=== PATIENT | female | born 1965 | race Caucasian/White ===

== ENCOUNTER 2017-04-18 18:24 | Emergency (ER) | payer OTHER ==
[2017-04-18 18:32] VITALS: RESP 16
[2017-04-18] MEDS ORDERED: NS 1,000 ML IV ONE (18:46)
--- NOTE | 2017-04-18 18:50 | EDPHY ---
H & P Time Seen by Provider: 04/18/17 18:38 HPI/ROS: CHIEF COMPLAINT: Right flank and abdominal pain HISTORY OF PRESENT ILLNESS: 51-year-old female presents with right flank abdominal pain. Onset of right-sided pain 5 days ago. The pain is moderate, waxes and wanes and is intermittent. The pain is sometimes in the right flank, other times in the right mid abdomen. Associated with constipation today. No alleviating/aggrevating factors. No change with eating. No fever, urinary symptoms, vomiting, or diarrhea. REVIEW OF SYSTEMS: Constitutional: No fever, no chills Eyes: No visual changes ENT: No sore throat Respiratory: No cough, no shortness of breath Cardiac: No chest pain Genitourinary: No hematuria, no dysuria Musculoskeletal: No leg pain or swelling Skin: No rash Neurological: No headache, no weakness Psychiatric: No depression Past Medical/Surgical History: Denies Social History: No recent alcohol Smoking Status: Never smoked Physical Exam: General Appearance: Alert, pleasant, does not appear in pain Eyes: Pupils equal and round, no conjunctival pallor or injection ENT, Mouth: Mucous membranes moist Neck: Normal inspection Respiratory: Lungs are clear to auscultation Cardiovascular: Regular rate and rhythm Gastrointestinal: Abdomen is soft and nontender Back: No CVA tenderness Neurological: A&O, nonfocal, normal gait Skin: Warm and dry, no rash Extremities: normal inspection Psychiatric: Mood and affect normal Constitutional: Initial Vital Signs Temperature (C) 36.5 C 04/18/17 18:28 Heart Rate 83 04/18/17 18:28 Respiratory Rate 16 04/18/17 18:28 Blood Pressure 105/77 04/18/17 18:28 O2 Sat (%) 100 04/18/17 18:28 O2 Delivery Mode Room Air Allergies/Adverse Reactions: No Known Allergies Allergy (Unverified 08/11/13 18:01) Home Medications: Medication Instructions Recorded Herbals/Supplements -Info Only 08/11/13 Multivitamins 08/11/13 Medical Decision Making - Diagnostics Imaging Results: CT abd/pelvis: small amt of free fluid in the pelvis, o/w unremarkable Imaging: Discussed imaging studies w/ icu rn Radiologist ED Course/Re-evaluation: This pt presents with intermittent rt sided abd/flank pain. Concern for renal colic. stat CT abd/pelvis with FF in pelvis only. Doubt ruptured ovarian cyst , given age, no pelvic tenderness and location of pain, but d/w pt. Pain not typical of biliary colic, consider RUQ sono if pain persists. Abd remains soft/ NT. Abd pain precuations given. Differential Diagnosis: Differential diagnosis includes though it is not limited to appendicitis, cholecystitis, diverticulitis, pyelonephritis, bowel perforation, small bowel obstruction. - Data Points Laboratory Results: Laboratory Results 04/18/17 18:58 04/18/17 18:58 Medications Given: Discontinued Medications Sodium Chloride (Ns) 1,000 mls @ 0 mls/hr IV EDNOW ONE; Wide Open PRN Reason: Protocol Stop: 04/18/17 18:47 Last Admin: 04/18/17 18:51 Dose: 1,000 mls Departure - Departure Disposition: Home, Routine, Self-Care Clinical Impression: Abdominal pain Qualifiers: Abdominal location: unspecified location Qualified Code(s): R10.9 - Unspecified abdominal pain Condition: Good Instructions: Constipation (ED), Acute Abdominal Pain (ED) Referrals: Salome Bergman MD [Primary Care Provider] - As per Instructions
[2017-04-18 19:03] LABS: % IMMATURE GRANULYOCYTES 0.2 % (0.0-1.1); ABSOLUTE IMMATURE GRANULOCYTES 0.01 10^3/uL (0.00-0.10); ADD DIFF? NO; ADD MORPH? NO; ADD SCAN? NO; ATYPICAL LYMPHOCYTE FLAG 0 (0-99); FRAGMENT RBC FLAG 0 (0-99); HEMATOCRIT 38.7 % (38.0-47.0); HEMOGLOBIN 13.2 g/dL (12.6-16.3); LEFT SHIFT FLG 0 (0-99); LIPEMIA HEMOLYSIS FLAG 90 (0-99); MEAN CELL HEMOGLOBIN 33.8 pg (27.9-34.1); MEAN CELL HEMOGLOBIN CONCENTR. 34.1 g/dL (32.4-36.7); MEAN PLATELET VOLUME 10.7 fL (8.7-11.7); PLATELET CLUMPS FLAG 0 (0-99); PLATELET COUNT 185 10^3/uL (150-400); RED BLOOD CELL COUNT 3.91 10^6/uL (4.18-5.33); RED CELL DISTRIBUTION WIDTH 13.1 % (11.5-15.2)
[2017-04-18 19:19] LABS: ANION GAP 16 mEq/L (8-16); CALCIUM 9.8 mg/dL (8.5-10.4); CARBON DIOXIDE 22 mEq/l (22-31); CHLORIDE 103 mEq/L (97-110); CREATININE 0.8 mg/dL (0.6-1.0); GLOMERULAR FILTRATION RATE > 60; GLUCOSE 81 mg/dL (70-100); POTASSIUM 3.7 mEq/L (3.5-5.2); SODIUM 141 mEq/L (134-144)
[2017-04-18 19:59] VITALS: BP 111/74; PULSE 73; TEMP 98.4; O2SAT 99
== END 2017-04-18 19:59 | disposition home or self-care (01) ==
DX: R10.9 Unspecified abdominal pain (principal); E86.9 Volume depletion, unspecified

== ENCOUNTER 2017-10-06 23:31 | Emergency (ER) | payer OTHER ==
[2017-10-06 23:47] VITALS: TEMP 97.5
[2017-10-06] MEDS ORDERED: NS 1,000 ML IV ONE (23:47)
--- NOTE | 2017-10-06 23:49 | EDPHY ---
H & P Stated Complaint: upper abd pain started this evening Time Seen by Provider: 10/06/17 23:45 HPI/ROS: HPI CHIEF COMPLAINT: Abdominal pain HISTORY OF PRESENT ILLNESS: Patient very pleasant 52-year-old female, she is otherwise healthy, she states she takes lot of supplements, she presents emergency room with what she describes as prickling sensation across her epigastric region underneath the right rib pain left ribs. And it radiates down into her lower abdomen. She states she has had this for a while now but it has gotten more severe today. She has had at since 2 o'clock in the afternoon. She does state he gets slightly worse after she eats. She recently had her gallbladder out in June. She denies any chest pain or shortness of breath. Denies pleuritic pain. Denies fever vomiting. She complains of prickling pain across her epigastric region radiating into her lower abdomen. She did see her surgeon Dr. Wisam Piedra thinks it may be a bacterial overgrowth or bacterial infection her stomach possible H pylori she has given his stool sample but does not result yet. Past Medical History: Gallbladder disease status post cholecystectomy Past Surgical History: Cholecystectomy Social History: Denies drugs alcohol tobacco. Family History: Noncontributory ROS REVIEW OF SYSTEMS: A comprehensive 10 point review of systems is otherwise negative aside from elements mentioned in the history of present illness. Exam Constitutional appears well nontoxic no acute distress, triage nursing summary reviewed, vital signs reviewed, awake/alert. Eyes normal conjunctivae and sclera, EOMI, PERRLA. HENT normal inspection, atraumatic, moist mucus membranes, no epistaxis, neck supple/ no meningismus, no raccoon eyes. Respiratory clear to auscultation bilaterally, normal breath sounds, no respiratory distress, no wheezing. Cardiovascular rate normal, regular rhythm, no murmur, no edema, distal pulses normal. Gastrointestinal I cannot elicit any significant tenderness on exam soft, non- tender, no rebound, no guarding, normal bowel sounds, no distension, no pulsatile mass. Genitourinary no CVA tenderness. Musculoskeletal no midline vertebral tenderness, full range of motion, no calf swelling, no tenderness of extremities, no meningismus, good pulses, neurovascularly intact. Skin pink, warm, & dry, no rash, skin atraumatic. Neurologic awake, alert and oriented x 3, AAOx3, moves all 4 extremities equally, motor intact, sensory intact, CN II-XII intact, normal cerebellar, normal vision, normal speech. Psychiatric normal mood/affect. Heme/Lymph/Immune no lymphadenopathy. Differential diagnosis includes but is not limited to and in no particular order : Bowel obstruction, appendicitis, gallbladder disease, diverticulitis, colitis , enteritis, perforated viscus, gastritis, GERD, esophagitis, urinary tract infection, pyelonephritis, kidney stones Medical Decision Making: Plan for this patient IV establishment blood draw, her abdomen is benign here in emergency room I do not feel that she would benefit from any imaging. She has had previous multiple CT scans. Recently had her gallbladder out June. Will give a GI cocktail to see if this improves her discomfort. Will check basic blood work and re-evaluate. Re-evaluation: EKG interpretation by me on record in [facility] system. Impression time of EKG 0013: Sinus rhythm rate of 65 no acute ischemic changes. No ST elevation no ST depression no T-wave abnormalities. Unremarkable EKG. 0106AM: Re-examination at this time this patient is resting comfortably. I did reexamine her abdomen is soft nontender. I do not feel that she would benefit from any imaging at this time. It appears clinically most likely she has gastritis versus H pylori versus peptic ulcer disease. I do recommend she take Zantac for 2 weeks. Additionally follow up with Gastroenterology. Referral be given. Additionally she understands return emergency room she develops worsening abdominal pain fever vomiting. Zantac as prescribed. Stay away from spicy fatty greasy foods she understands. Source: Patient - Personal History LMP (Females 10-55): Post Menopausal Current Tetanus/Diphtheria Vaccine: No Current Tetanus Diphtheria and Acellular Pertussis (TDAP): No - Medical/Surgical History Hx Asthma: No Hx Chronic Respiratory Disease: No Hx Diabetes: No Hx Cardiac Disease: No Hx Renal Disease: No Hx Cirrhosis: No Hx Alcoholism: No Hx HIV/AIDS: No Hx Splenectomy or Spleen Trauma: No Other PMH: cholecystectomy - Social History Smoking Status: Never smoked Constitutional: Initial Vital Signs Temperature (C) 36.4 C 10/06/17 23:43 Heart Rate 70 10/06/17 23:43 Respiratory Rate 16 10/06/17 23:43 Blood Pressure 120/74 10/06/17 23:43 O2 Sat (%) 94 10/06/17 23:43 O2 Delivery Mode Room Air Allergies/Adverse Reactions: No Known Allergies Allergy (Verified 10/06/17 23:47) Home Medications: Medication Instructions Recorded Herbals/Supplements -Info Only 08/11/13 Multivitamins 08/11/13 Ranitidine HCl [Zantac] 150 mg PO DAILY #30 tablet 10/07/17 Medical Decision Making - Data Points Laboratory Results: Laboratory Results 10/07/17 00:01 10/07/17 00:01 10/07/17 10/07/17 10/07/17 00:01 00:01 00:01 WBC RBC Hgb Hct MCV MCH MCHC RDW Plt Count MPV Neut % (Auto) Lymph % (Auto) [place] % (Auto) Eos % (Auto) Baso % (Auto) Nucleat RBC Rel Count Absolute Neuts (auto) Absolute Lymphs (auto) Absolute Monos (auto) Absolute Eos (auto) Absolute Basos (auto) Absolute Nucleated RBC Immature Gran % Immature Gran # PT 13.7 SEC SEC (12.0-15.0) INR 1.03 (0.83-1.16) APTT 26.9 SEC SEC (23.0-38.0) Sodium 135 mEq/L mEq/L (135-145) Potassium 3.7 mEq/L mEq/L (3.5-5.2) Chloride 100 mEq/L mEq/L (97-110) Carbon Dioxide 25 mEq/l mEq/l (22-31) Anion Gap 10 mEq/L mEq/L (8-16) BUN 17 mg/dL mg/dL (7-23) Creatinine 0.6 mg/dL mg/dL (0.6-1.0) Estimated GFR > 60 Glucose 79 mg/dL mg/dL (70-100) Calcium 9.2 mg/dL mg/dL (8.5-10.4) Total Bilirubin 0.6 mg/dL D mg/dL (0.1-1.4) Conjugated Bilirubin 0.2 mg/dL mg/dL (0.0-0.5) Unconjugated Bilirubin 0.4 mg/dL mg/dL (0.0-1.1) AST 32 IU/L IU/L (14-46) ALT 48 IU/L IU/L (9-52) Alkaline Phosphatase 53 IU/L IU/L (38-126) Troponin I < 0.012 ng/mL ng/mL (0.000-0.034) Total Protein 6.6 g/dL g/dL (6.3-8.2) Albumin 4.2 g/dL g/dL (3.5-5.0) Lipase 223 IU/L IU/L (23-300) Beta HCG, Qual NEGATIVE 10/07/17 00:01 WBC 4.91 10^3/uL 10^3/uL (3.80-9.50) RBC 3.79 10^6/uL L 10^6/uL (4.18-5.33) Hgb 13.1 g/dL g/dL (12.6-16.3) Hct 37.4 % L % (38.0-47.0) MCV 98.7 fL fL (81.5-99.8) MCH 34.6 pg H pg (27.9-34.1) MCHC 35.0 g/dL g/dL (32.4-36.7) RDW 12.4 % % (11.5-15.2) Plt Count 182 10^3/uL 10^3/uL (150-400) MPV 9.8 fL fL (8.7-11.7) Neut % (Auto) 39.9 % % (39.3-74.2) Lymph % (Auto) 48.3 % H % (15.0-45.0) Cocke % (Auto) 7.9 % % (4.5-13.0) Eos % (Auto) 3.1 % % (0.6-7.6) Baso % (Auto) 0.6 % % (0.3-1.7) Nucleat RBC Rel Count 0.0 % % (0.0-0.2) Absolute Neuts (auto) 1.96 10^3/uL 10^3/uL (1.70-6.50) Absolute Lymphs (auto) 2.37 10^3/uL 10^3/uL (1.00-3.00) Absolute Monos (auto) 0.39 10^3/uL 10^3/uL (0.30-0.80) Absolute Eos (auto) 0.15 10^3/uL 10^3/uL (0.03-0.40) Absolute Basos (auto) 0.03 10^3/uL 10^3/uL (0.02-0.10) Absolute Nucleated RBC 0.00 10^3/uL 10^3/uL (0-0.01) Immature Gran % 0.2 % % (0.0-1.1) Immature Gran # 0.01 10^3/uL 10^3/uL (0.00-0.10) PT INR APTT Sodium Potassium Chloride Carbon Dioxide Anion Gap BUN Creatinine Estimated GFR Glucose Calcium Total Bilirubin Conjugated Bilirubin Unconjugated Bilirubin AST ALT Alkaline Phosphatase Troponin I Total Protein Albumin Lipase Beta HCG, Qual Medications Given: Discontinued Medications Al Hydroxide/Mg Hydroxide (Maalox Susp) 30 ml PO ONCE ONE Stop: 10/06/17 23:57 Last Admin: 10/07/17 00:06 Dose: 30 ml Hyoscyamine Sulfate (Levsin, Hyomax-Sl) 0.25 mg PO ONCE ONE Stop: 10/06/17 23:57 Last Admin: 10/07/17 00:07 Dose: 0.25 mg Sodium Chloride (Ns) 1,000 mls @ 0 mls/hr IV EDNOW ONE; Wide Open PRN Reason: Protocol Stop: 10/06/17 23:48 Last Admin: 10/06/17 23:59 Dose: 1,000 mls Lidocaine (Lidocaine 2% Viscous) 15 ml PO ONCE ONE Stop: 10/06/17 23:57 Last Admin: 10/07/17 00:07 Dose: 15 ml Departure - Departure Disposition: Home, Routine, Self-Care Clinical Impression: Abdominal pain Qualifiers: Abdominal location: epigastric Qualified Code(s): R10.13 - Epigastric pain Condition: Good Instructions: Acute Abdominal Pain (ED), Gastritis (ED) Additional Instructions: 1. Zantac as prescribed. 2. Stay away from spicy fatty greasy foods. 3. Follow up with her primary care doctor. 4. Follow up with Gastroenterology. 5. If you have severe pain vomiting blood in her stool worsening symptoms return to the emergency room. Referrals: Salome Bergman MD [Primary Care Provider] - As per Instructions Danny Rivera MD [Medical Doctor] - As per Instructions Prescriptions: Ranitidine HCl [Zantac] 150 mg PO DAILY #30 tablet
[2017-10-06] MEDS ORDERED: LIDOCAINE 2% VISCOUS 15 ML UDCUP PO ONE (23:56)
[2017-10-06] MEDS ORDERED: MAG HYDROX/AL HYDROX/SIMETH 30 ML UDCUP PO ONE (23:56)
[2017-10-06] MEDS ORDERED: HYOSCYAMINE SULFATE 0.125 MG TAB PO ONE (23:56)
[2017-10-07 00:13] LABS: PLATELET COUNT 182 10^3/uL (150-400)
--- NOTE | 2017-10-07 00:15 | CPEKG ---
Heart Rate: 65 RR Interval: 923 P-R Interval: 196 QRSD Interval: 90 QT Interval: 408 QTC Interval: 425 P [place]: 63 QRS [place]: 74 T Wave [place]: 63 EKG Severity - NORMAL ECG - EKG Impression: SINUS RHYTHM Electronically Signed By: Geovani Kimble 07-Oct-2017 07:04:38
[2017-10-07 00:21] LABS: INR 1.03 (0.83-1.16); PROTIME(PATIENT) 13.7 SEC (12.0-15.0)
[2017-10-07 01:17] VITALS: BP 108/73; PULSE 65; RESP 18; O2SAT 96
== END 2017-10-07 01:16 | disposition home or self-care (01) ==
DX: R10.13 Epigastric pain (principal); E86.9 Volume depletion, unspecified; Z90.49 Acquired absence of other specified parts of digestive tract